=== PATIENT | male | born 1975 | race Caucasian/White ===

== ENCOUNTER 2016-08-20 14:29 | Emergency (ER) | payer OTHER ==
[~2016-08-20 14:29] MED LIST: ABILIFY5 MG PO; COLACE100 MG PO; COMBIGAN O20 DROP/5 RIGHT EYE; FLONASE16 G1 BOTH NARES; OPANA ER10 MG PO; OXYCONTIN40 MG PO; PANTOPRAZOLE SO40 MG PO; TRAVATAN Z5 ML RIGHT EYE; TRUSOPT5 ML RIGHT EYE; VALIUM5 MG PO; VENLAFAXINE225 MG PO; ZOCOR40 MG PO
[2016-08-20 14:53] LABS: EOSINOPHIL (%) 0.6 % (0-5); EOSINOPHIL COUNT 0.1 K/uL (0-0.3); HEMATOCRIT 44.5 % (38.0-50.0); IMMATURE GRANULOCYTE (%) 0.2 % (0.0-0.7); INSTRUMENT ABS NEUTROPHIL CT 7.2 K/uL; LYMPHOCYTE COUNT 1.2 K/uL (1.0-2.8); MCH 27.9 PG (29.0-34.0); MCV 84.4 FL (86-99); MEAN PLAT.VOLUME 8.8 uM^3 (9.0-12.4); MONOCYTE (%) 3.3 % (3-12); MONOCYTE COUNT 0.3 K/uL (0-0.8); NEUTROPHIL (%) 82.5 % (45-76); NEUTROPHIL COUNT 7.2 K/uL (1.8-6.4); PLATELET COUNT 250 K/uL (156-360); RBC DIS.WIDTH-CV 12.4 % (11.8-14.6); RBC DIS.WIDTH-SD 38.2 % (39-53); RED BLOOD COUNT 5.27 M/uL (4.00-5.50); WHITE BLOOD COUNT 8.7 K/uL (4.1-10.2)
[2016-08-20 15:25] LABS: AMYLASE 32 IU/L (1-118); CHLORIDE 106 mEq/L (99-109); SODIUM 142 mEq/L (136-147)
[2016-08-20 15:27] LABS: GLUCOSE 118 mg/dL (70-99)
[2016-08-20 15:28] LABS: ANION GAP 10 MEQ/L (2-14)
[2016-08-20 15:30] LABS: SERUM ETHYL ALCOHOL < 10 mg/dL
[2016-08-20 15:31] LABS: GFR ESTIMATE (CALCULATED) > 59 mL/min/
[2016-08-20 15:32] LABS: UREA NITROGEN (BUN) 17 mg/dL (9-23)
[2016-08-20 15:34] LABS: LIPASE 15 U/L (1.0-51.0)
[2016-08-20 16:46] LABS: ADD MIUA? YES; BILIRUBIN NEGATIVE; BLOOD SMALL; COLOR YELLOW ((YELLOW)); GLUCOSE (STRIP) NEGATIVE; KETONES NEGATIVE; LEUKOCYTES NEGATIVE; NITRITE NEGATIVE; PROTEIN (STRIP) NEGATIVE; SPECIFIC GRAVITY 1.021 (1.000-1.030); UROBILINOGEN 0.2 MG/DL (0.2-1.0)
[2016-08-20] MEDS ORDERED: DURAGESIC100 MCG TD (17:08)
[2016-08-20 17:10] LABS: BACTERIA NONE SEEN /HPF; EPITHELIAL CELLS NONE SEEN /HPF; MUCUS NONE SEEN /LPF; UCUL ADDED? NO; WHITE BLOOD CELLS NONE SEEN /HPF (0-5)
[2016-08-20 17:11] LABS: CASTS NONE SEEN /LPF; CRYSTALS NONE SEEN
[2016-08-20 17:18] LABS: ADD MEDTOX COMMENT Y; AMPHETAMINE NEGATIVE (500 ng/mL); BARBITURATES NEGATIVE (200 ng/mL); BENZODIAZEPINES PRESUMPTIVE POSITIVE (150 ng/mL); COCAINE NEGATIVE (150 ng/mL); INTERNAL CONTROLS VALID? YES; METHADONE NEGATIVE (200 ng/mL); METHAMPHETAMINE NEGATIVE (500 ng/mL); OPIATES (MORPHINE) NEGATIVE (100 ng/mL); OXYCODONE PRESUMPTIVE POSITIVE (100 ng/mL); PHENCYCLIDINE NEGATIVE (25 ng/mL); PROPOXYPHENE NEGATIVE (300 ng/mL); THC CANNABINOIDS NEGATIVE (50 ng/mL); TRICYCLIC ANTIDEPRESSANTS NEGATIVE (300 ng/mL)
[2016-08-20 17:55] LABS: BENZODIAZEPINES, URINE SCREEN POSITIVE (200 ng/mL)
== END 2016-08-20 17:09 | disposition home or self-care (01) ==
LOC: TRA 14:29
PROVIDERS: Emergency Medicine
DX: S61.511A Laceration without foreign body of right wrist, initial encounter (principal); G89.29 Other chronic pain; V47.0XXA Car driver injured in collision with fixed or stationary object in nontraffic accident, initial encounter; S16.1XXA Strain of muscle, fascia and tendon at neck level, initial encounter; S39.012A Strain of muscle, fascia and tendon of lower back, initial encounter; M25.522 Pain in left elbow; Z23 Encounter for immunization
CPT/HCPCS: 70450; 71260; 72125; 72129; 72132; 73080; 73110; 74177; 80048; 81003; 82150; 83690; 84999; 85025; 86850; 86900; 86901; 99281; 99285; G0480